=== PATIENT | female | born 1960 | race Caucasian/White ===

== ENCOUNTER → 2021-08-26 | Outpatient (CLI) | payer OTHER ==
[~2021-08-26] MED LIST: IODINE/POTASS IOD (LUGOLS) BOTTLE ONE
--- NOTE | 2021-08-26 16:42 | NM ---
EXAMINATION TYPE: NM DatScan Brain SPECT DATE OF EXAM: 08/26/2021 COMPARISON: NONE HISTORY: R 41.3 TECHNIQUE: 10 drops of Lugol's solution was administered 1 hour prior to injection as a thyroid bloc shmuel agent. After the administration of 4.58 mCi I-123 Ioflupane DaTscan. Images obtained 3 hours p ost injection. SPECT images of the brain were acquired with axial and coronal reconstructions. FINDINGS: Bilateral abnormal decreased uptake is noted along the striata. Decreased uptake is noted on the left compared to the right. IMPRESSION: Abnormal ANTWAN scan. 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
== END | disposition home or self-care (01) ==
LOC: RADNMMAIN 11:05
PROVIDERS: ATTEND Psychiatry & Neurology Neurology
DX: R41.3 Other amnesia (principal)
CPT/HCPCS: 78803; A9584

== ENCOUNTER → 2024-01-18 | Outpatient (CLI) | payer BC ==
--- NOTE | 2024-01-18 16:18 | MR ---
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 COMPARISON: None. TECHNIQUE: Multi planar, multi sequence imaging was performed through the brain without administratio n intravenous contrast. FINDINGS: The guzman-white junctions, ventricular system, basal cisterns appear unremarkable. Age-appropriate cer ebral parenchymal volume. Diffusion-weighted imaging shows no evidence of restricted diffusion to sug gest acute/subacute infarct. Intracranial arterial flow voids are maintained. Midline structures show no abnormality. Few foci of high T2/FLAIR signal intensity are seen within the subcortical white mat ter including a posterior right subcortical white matter 4 mm T2/hypointense lesion (series 601, imag e 22). The susceptibility weighted images do not reveal any evidence for micro-hemorrhage. The bone marrow signal is within normal limits. The paranasal sinuses and globes are unremarkable. IMPRESSION: 1. No evidence of acute/subacute infarct or intracranial mass. 2. Few scattered small nonspecific white matter changes in the right frontal lobe, likely related to small vessel ischemic disease versus other etiologies such as migraines or demyelinating process. [facility], , 01/18/2024 4:16 PM
== END | disposition home or self-care (01) ==
LOC: RADMRIMAIN 15:27
PROVIDERS: ATTEND Psychiatry & Neurology Neurology
DX: G20.A1 Parkinson's disease without dyskinesia, without mention of fluctuations (principal); G31.84 Mild cognitive impairment of uncertain or unknown etiology
CPT/HCPCS: 70551